=== PATIENT | male | born 1980 | race Caucasian/White ===

== ENCOUNTER 2024-04-30 20:55 | Inpatient (IN) | payer MEDICARE, OTHER ==
[~2024-04-30] VITALS: Ht 195.6 cm; Wt 132.7 kg
[2024-04-30] MEDS: ACETAMINOPHEN 500 MG TAB PO SCH (22:00)
[2024-04-30] MEDS: MORPHINE 10 MG/ML 1ML VIAL IM ONE (23:22)
[2024-05-01] VITALS (8 sets, daily range): BP systolic 133–166; BP diastolic 79–103; TEMP 97.3–97.7; O2SAT 89–97
[2024-05-01] MEDS: KETOROLAC 30 MG/ML 1ML VIAL IV SCH (02:03)
[2024-05-01 02:15] LABS: HEMATOCRIT 42.5 % (42.0-52.0); HEMOGLOBIN 14.2 g/dl (13.5-17.5); MEAN CORPUSCULAR HEMOGLOBIN 27.6 pg (27.0-33.0); MEAN CORPUSCULAR HGB CONC 33.4 g/dl (32.0-36.5); MEAN CORPUSCULAR VOLUME 82.7 fl (80.0-96.0); PLATELET COUNT, AUTOMATED 273 10^3/uL (150-450); RED BLOOD COUNT 5.14 10^6/uL (4.30-6.10); WHITE BLOOD COUNT 14.8 10^3/uL (4.0-10.0)
[2024-05-01 02:34] LABS: BLOOD UREA NITROGEN 13 MG/DL (9-23); CALCIUM LEVEL 9.9 MG/DL (8.5-10.1); CARBON DIOXIDE LEVEL 23 MMOL/L (20-31); CHLORIDE LEVEL 103 MMOL/L (98-107); CREATININE FOR GFR 1.22 MG/DL (0.70-1.30); GLOMERULAR FILTRATION RATE > 60.0 (>60); GLUCOSE, FASTING 88 MG/DL (60-100); POTASSIUM SERUM 4.4 MMOL/L (3.5-5.1); SODIUM LEVEL 138 MMOL/L (136-145)
[2024-05-01] MEDS ORDERED: MOM 30ML SUSPENSION UDC PO PRN (02:45)
[2024-05-01] MEDS ORDERED: LORazepam 2 MG TAB PO PRN (02:50)
[2024-05-01] MEDS: THIAMINE 100 MG TAB PO SCH (03:40)
[2024-05-01] MEDS: NORCO, ANEXSIA 5/325MG TABLET (HYDROcodone/ACETAMINOPHEN) PO PRN (06:44)
[2024-05-01] MEDS: FOLIC ACID 1MG TAB PO SCH (09:37)
[2024-05-01] MEDS: MULTIVITAMINS/MINERALS THERAP 1 TAB PO SCH (09:37)
[2024-05-01] MEDS: DOCUSATE SODIUM 100MG CAPSULE PO SCH (09:37)
[2024-05-01] MEDS ORDERED: HOME MED LIST COMPLETE! XX SCH (11:20)
[2024-05-01 16:54] LABS: BASO # 0.1 10^3/uL (0.0-0.2); BASO % 0.6 % (0.0-1.0); EOS # 0.1 10^3/uL (0.0-0.5); HEMATOCRIT 42.6 % (42.0-52.0); HEMOGLOBIN 14.5 g/dl (13.5-17.5); LYMPH # 1.4 10^3/uL (1.5-5.0); LYMPH % 14.4 % (24.0-44.0); MEAN CORPUSCULAR HEMOGLOBIN 28.3 pg (27.0-33.0); MONO # 0.8 10^3/uL (0.0-0.8); NEUTROPHILS # 7.6 10^3/uL (1.5-8.5); NEUTROPHILS % 75.7 % (36.0-66.0); PLATELET COUNT, AUTOMATED 245 10^3/uL (150-450); RED BLOOD COUNT 5.13 10^6/uL (4.30-6.10)
[2024-05-01 17:21] LABS: BLOOD UREA NITROGEN 17 MG/DL (9-23); CALCIUM LEVEL 9.6 MG/DL (8.5-10.1); CARBON DIOXIDE LEVEL 26 MMOL/L (20-31); CHLORIDE LEVEL 105 MMOL/L (98-107); CREATININE FOR GFR 1.16 MG/DL (0.70-1.30); GLOMERULAR FILTRATION RATE > 60.0 (>60); GLUCOSE, FASTING 98 MG/DL (60-100); POTASSIUM SERUM 3.3 MMOL/L (3.5-5.1); SODIUM LEVEL 140 MMOL/L (136-145)
[2024-05-02] VITALS (9 sets, daily range): BP systolic 133–148; BP diastolic 80–98; TEMP 97.2–97.7; O2SAT 95–100
[2024-05-02] MEDS: KETOROLAC 30 MG/ML 1ML VIAL IV PRN (06:44)
[2024-05-02 08:23] LABS: BASO # 0.1 10^3/uL (0.0-0.2); BASO % 0.7 % (0.0-1.0); EOS # 0.1 10^3/uL (0.0-0.5); EOS % 1.7 % (0.0-3.0); LYMPH # 1.4 10^3/uL (1.5-5.0); MEAN CORPUSCULAR HEMOGLOBIN 27.6 pg (27.0-33.0); MEAN CORPUSCULAR HGB CONC 33.3 g/dl (32.0-36.5); MEAN CORPUSCULAR VOLUME 82.8 fl (80.0-96.0); MONO # 0.6 10^3/uL (0.0-0.8); MONO % 7.7 % (2.0-8.0); NEUTROPHILS # 5.4 10^3/uL (1.5-8.5); NEUTROPHILS % 71.6 % (36.0-66.0); PLATELET COUNT, AUTOMATED 226 10^3/uL (150-450); RED BLOOD COUNT 5.07 10^6/uL (4.30-6.10); WHITE BLOOD COUNT 7.5 10^3/uL (4.0-10.0)
[2024-05-02 08:48] LABS: BLOOD UREA NITROGEN 16 MG/DL (9-23); CALCIUM LEVEL 9.3 MG/DL (8.5-10.1); CARBON DIOXIDE LEVEL 26 MMOL/L (20-31); CHLORIDE LEVEL 108 MMOL/L (98-107); CREATININE FOR GFR 1.22 MG/DL (0.70-1.30); GLOMERULAR FILTRATION RATE > 60.0 (>60); GLUCOSE, FASTING 99 MG/DL (60-100); POTASSIUM SERUM 4.3 MMOL/L (3.5-5.1); SODIUM LEVEL 141 MMOL/L (136-145)
[2024-05-02] MEDS: POTASSIUM CHLORIDE 10MEQ SR TABLET PO ONE (09:38)
[2024-05-02] MEDS ORDERED: MIDAZOLAM INJ 2MG/2ML VIAL As Ordered ONE (11:36)
[2024-05-02] MEDS ORDERED: fentaNYL 100 MCG/2 ML INJECTION As Ordered ONE (11:37)
[2024-05-02] MEDS ORDERED: ROCURONIUM BROMIDE 50MG/5ML VIAL As Ordered ONE (11:37)
[2024-05-02] MEDS ORDERED: propofoL 200 MG/20 ML VIAL As Ordered ONE (11:37)
[2024-05-02] MEDS ORDERED: ONDANSETRON 4MG 2ML VIAL As Ordered ONE (11:37)
[2024-05-02] MEDS ORDERED: LIDOCAINE 2% 100MG/5ML SDV (FOR ANES.) As Ordered ONE (11:37)
[2024-05-02] MEDS ORDERED: dexmedeTOMIDine (4MCG/ML)200MCG/50ML BTL (PRECEDEX) As Ordered ONE (11:40)
[2024-05-02] MEDS: ROPIvacaine 0.5% 30ML VIAL PN ONE (12:35)
[2024-05-02] MEDS ORDERED: HYDROMORPHONE HCL 0.5 MG/ 0.5 ML SYRINGE IV PRN ×2 (12:40→18:30)
[2024-05-02] MEDS ORDERED: fentaNYL 100 MCG/2 ML INJECTION IV PRN ×2 (12:40→18:30)
[2024-05-02] MEDS ORDERED: dexAMETHasone 10MG/1ML VIAL PRES.FREE As Ordered ONE (12:42)
[2024-05-02] MEDS: MIDAZOLAM INJ 2MG/2ML VIAL IV PRN (12:45)
[2024-05-02] MEDS: fentaNYL 100 MCG/2 ML INJECTION IV PRN (12:45)
[2024-05-02] MEDS: ceFAZolin 2 GM/D5W 50 ML IV BAG As Ordered ONE (13:30)
[2024-05-02] MEDS: ceFAZolin 1GM VIAL As Ordered ONE (13:30)
[2024-05-02] MEDS: TRANEXAMIC ACID 100 MG/ML 10ML VIAL As Ordered ONE (13:56)
[2024-05-02] MEDS ORDERED: ACETAMINOPHEN 1000MG/100ML IV BAG As Ordered ONE (14:06)
[2024-05-02] MEDS ORDERED: SUGAMMADEX SODIUM 500 MG/5 ML VIAL (BRIDION) As Ordered ONE (14:20)
[2024-05-02] MEDS ORDERED: KETOROLAC 60MG 2ML VIAL As Ordered ONE (14:20)
[2024-05-02] MEDS: VANCOMYCIN 1000MG/20ML VIAL As Ordered ONE (14:59)
[2024-05-02] MEDS ORDERED: HYDROmorphone HCL 2MG/ML 1ML VIAL As Ordered ONE (16:18)
[2024-05-02] MEDS ORDERED: NORCO, ANEXSIA 5/325MG TABLET (HYDROcodone/ACETAMINOPHEN) PO PRN (18:30)
[2024-05-02] MEDS: LR 1,000 ML IV SCH (20:20)
[2024-05-03] VITALS: BP 144/90; TEMP 97.7; O2SAT 97
[2024-05-03 01:00] VITALS: BP 144/78; TEMP 98.6; O2SAT 97
[2024-05-03 04:13] VITALS: BP 139/86; TEMP 97.3; O2SAT 96
[2024-05-03 05:36] LABS: BASO % 0.2 % (0.0-1.0); EOS % 0.2 % (0.0-3.0); LYMPH # 0.9 10^3/uL (1.5-5.0); LYMPH % 7.5 % (24.0-44.0); MEAN CORPUSCULAR HEMOGLOBIN 27.4 pg (27.0-33.0); MEAN CORPUSCULAR HGB CONC 32.6 g/dl (32.0-36.5); MEAN CORPUSCULAR VOLUME 84.1 fl (80.0-96.0); MONO # 0.7 10^3/uL (0.0-0.8); MONO % 5.3 % (2.0-8.0); NEUTROPHILS # 10.8 10^3/uL (1.5-8.5); NEUTROPHILS % 86.4 % (36.0-66.0); PLATELET COUNT, AUTOMATED 253 10^3/uL (150-450); RED BLOOD COUNT 5.11 10^6/uL (4.30-6.10); WHITE BLOOD COUNT 12.5 10^3/uL (4.0-10.0)
[2024-05-03 06:01] LABS: BLOOD UREA NITROGEN 14 MG/DL (9-23); CALCIUM LEVEL 9.6 MG/DL (8.5-10.1); CARBON DIOXIDE LEVEL 23 MMOL/L (20-31); CHLORIDE LEVEL 107 MMOL/L (98-107); CREATININE FOR GFR 1.08 MG/DL (0.70-1.30); GLOMERULAR FILTRATION RATE > 60.0 (>60); GLUCOSE, FASTING 126 MG/DL (60-100); POTASSIUM SERUM 4.4 MMOL/L (3.5-5.1); SODIUM LEVEL 141 MMOL/L (136-145)
[2024-05-03] MEDS: ASPIRIN 325 MG TAB PO SCH (09:25)
[2024-05-03] MEDS ORDERED: HYDR-3715 PO (09:45)
[2024-05-03] MEDS ORDERED: ACET-683 PO (09:45)
[2024-05-03] MEDS ORDERED: MIRA33506 PO (09:45)
[2024-05-03] MEDS ORDERED: IBUP-1114 PO (09:45)
[2024-05-03] MEDS ORDERED: ASPI-1 PO (09:45)
== END 2024-05-03 12:44 | disposition home or self-care (01) | DRG 494 ==
LOC: M ED 20:55 → M ED INP 05-01 02:41 → M MSPAV 05-01 04:48
PROVIDERS: ADMIT Student in an Organized Health Care Education/Training Program; ATTEND Student in an Organized Health Care Education/Training Program
PROC: 0QSJ04Z Reposition Right Fibula with Internal Fixation Device, Open Approach (ICD-10-PCS; 2024-05-02)
PROC: 0QSG04Z Reposition Right Tibia with Internal Fixation Device, Open Approach (ICD-10-PCS; principal; 2024-05-02 12:00)
DX: S82.851A Displaced trimalleolar fracture of right lower leg, initial encounter for closed fracture (principal); F10.10 Alcohol abuse, uncomplicated; Z88.5 Allergy status to narcotic agent; Z88.6 Allergy status to analgesic agent; Y93.23 Activity, snow (alpine) (downhill) skiing, snowboarding, sledding, tobogganing and snow tubing; Y92.39 Other specified sports and athletic area as the place of occurrence of the external cause; X58.XXXA Exposure to other specified factors, initial encounter; Z79.82 Long term (current) use of aspirin

== ENCOUNTER → 2024-05-14 | Outpatient (CLI) | payer MEDICARE, OTHER ==
[~2024-05-14] MED LIST: ACET-683 PO; ASPI-1 PO; HYDR-3715 PO; IBUP-1114 PO; MIRA33506 PO
== END ==
LOC: M SOG 07:53
PROVIDERS: ATTEND Physician Assistant
DX: S82.851A Displaced trimalleolar fracture of right lower leg, initial encounter for closed fracture (principal); W18.30XA Fall on same level, unspecified, initial encounter; Y92.009 Unspecified place in unspecified non-institutional (private) residence as the place of occurrence of the external cause

== ENCOUNTER → 2024-06-11 | Outpatient (CLI) | payer MEDICARE, OTHER | LOC: M SOG 07:56 | PROVIDERS: ATTEND Physician Assistant | DX: S82.851A Displaced trimalleolar fracture of right lower leg, initial encounter for closed fracture (principal); Y93.9 Activity, unspecified; Y92.9 Unspecified place or not applicable ==

== ENCOUNTER → 2024-07-23 | Outpatient (CLI) | payer MEDICARE, OTHER | LOC: M SOG 07:45 | PROVIDERS: ATTEND Physician Assistant | DX: S82.851A Displaced trimalleolar fracture of right lower leg, initial encounter for closed fracture (principal) ==

== ENCOUNTER → 2024-09-24 | Outpatient (CLI) | payer MEDICARE, OTHER | LOC: M SOG 06:52 | PROVIDERS: ATTEND Physician Assistant | DX: S82.851A Displaced trimalleolar fracture of right lower leg, initial encounter for closed fracture (principal) ==

== ENCOUNTER → 2025-01-13 | Outpatient (CLI) | payer MEDICARE, OTHER | LOC: M SOG 06:48 | PROVIDERS: ATTEND Physician Assistant | DX: S82.851D Displaced trimalleolar fracture of right lower leg, subsequent encounter for closed fracture with routine healing (principal) ==